=== PATIENT | male | born 1980 | race Caucasian/White ===

== ENCOUNTER 2021-10-23 10:43 | Emergency (ER) | payer OTHER ==
[2021-10-23 10:50] VITALS: BP 132/80; PULSE 66; RESP 18; TEMP 98.1
--- NOTE | 2021-10-23 11:07 | ED ---
General Adult HPI - General Chief complaint: Extremity Injury, Lower Stated complaint: Broken toe Time Seen by Provider: 10/23/21 10:45 Source: patient, family, RN notes reviewed Mode of arrival: ambulatory Limitations: no limitations - History of Present Illness Initial comments: 40-year-old male sent emergency Department with chief complaint of right foot first digit pain. Patient states his pain softball states that he fell backwards rolling striking his toe. Patient states that the pain is only was first digit hurts with walking no other complaints. - Related Data Allergies Allergy/AdvReac Type Severity Reaction Status Date / Time diazepam [From Valium] Allergy Rash/Hives Verified 10/23/21 10:50 hydrocodone Allergy Itching Verified 10/23/21 10:50 ibuprofen Allergy Rash/Hives Verified 10/23/21 10:49 iodine Allergy Rash/Hives Verified 10/23/21 10:50 Review of Systems ROS Statement: Those systems with pertinent positive or pertinent negative responses have been documented in the HPI. ROS Other: All systems not noted in ROS Statement are negative. Past Medical History Past Medical History: No Reported History History of Any Multi-Drug Resistant Organisms: None Reported Past Surgical History: Orthopedic Surgery Additional Past Surgical History / Comment(s): elbow Smoking Status: Vaper Past Alcohol Use History: Occasional Past Drug Use History: None Reported General Exam Limitations: no limitations General appearance: alert, in no apparent distress Head exam: Present: atraumatic, normocephalic, normal inspection Eye exam: Present: normal appearance, PERRL, EOMI. Absent: scleral icterus, conjunctival injection, periorbital swelling Respiratory exam: Present: normal lung sounds bilaterally. Absent: respiratory distress, wheezes, rales, rhonchi, stridor Cardiovascular Exam: Present: regular rate, normal rhythm, normal heart sounds. Absent: systolic murmur, diastolic murmur, rubs, gallop, clicks Extremities exam: Present: other (Right foot there is some swelling, ecchymosis over the first digit, no proximal foot tenderness neurovascular intact digits 2 through 5 nontender) Course Vital Signs 10/23/21 10:47 Temperature 98.1 F Pulse Rate 66 Respiratory 18 Rate Blood Pressure 132/80 O2 Sat by Pulse 98 Oximetry Medical Decision Making - Medical Decision Making 40-year-old present for toe pain. X-ray was reviewed and shows no evidence of acute fracture. Patient has a right foot toe sprain. Patient we discharged stable condition return parameters were discussed. Disposition Clinical Impression: Sprain of right great toe Disposition: HOME SELF-CARE Condition: Stable Instructions (If sedation given, give patient instructions): Foot Sprain (ED) Additional Instructions: Please return to the Emergency Department if symptoms worsen or any other concerns. Is patient prescribed a controlled substance at d/c from ED?: No Referrals: Nonstaff,Physician [Primary Care Provider] - 1-2 days Time of Disposition: 11:11
--- NOTE | 2021-10-23 11:28 | XR ---
EXAMINATION TYPE: XR foot complete RT DATE OF EXAM: 10/23/2021 11:09 AM INDICATION: Patient age:Male; 40 years old; Reason for study: pain 1st digit; COMPARISON: None TECHNIQUE: The right foot was examined in the AP, oblique, and lateral projections. FINDINGS: No evidence of any acute osseous pathology. No evidence of soft tissue swelling. Joints are preserve d. IMPRESSION: No evidence of acute fracture.
== END 2021-10-23 11:26 | disposition home or self-care (01) ==
LOC: EC 10:43
DX: S93.501A Unspecified sprain of right great toe, initial encounter (principal); F17.290 Nicotine dependence, other tobacco product, uncomplicated; Z88.8 Allergy status to other drugs, medicaments and biological substances; Z88.6 Allergy status to analgesic agent; Z88.5 Allergy status to narcotic agent; X50.9XXA Other and unspecified overexertion or strenuous movements or postures, initial encounter; Y93.64 Activity, baseball
CPT/HCPCS: 99283

== ENCOUNTER → 2023-07-03 | Outpatient (CLI) | payer OTHER | END | disposition home or self-care (01) | LOC: RADFLMAIN 12:33 | PROVIDERS: ATTEND Family Medicine | DX: Z53.9 Procedure and treatment not carried out, unspecified reason (principal) ==